=== PATIENT | male | born 1990 | race Two or more races ===

== ENCOUNTER 2017-01-26 15:15 | Emergency (ER) | payer OTHER ==
[~2017-01-26] VITALS: Ht 172.7 cm; Wt 67.6 kg
[2017-01-26 15:16] VITALS: BP 126/75; Ht 172.7 cm; Wt 67.6 kg
== END 2017-01-26 15:51 | disposition other institution (70) ==
LOC: ED 15:15
DX: Z02.89 Encounter for other administrative examinations (principal)

== ENCOUNTER 2018-04-17 14:11 | Emergency (ER) | payer OTHER ==
[~2018-04-17] VITALS: Ht 172.7 cm; Wt 59.9 kg
[2018-04-17 14:19] VITALS: Ht 172.7 cm; Wt 59.9 kg
[2018-04-17 14:58] VITALS: BP 140/83
== END 2018-04-17 14:58 | disposition other institution (70) ==
LOC: ED 14:11
DX: Z02.89 Encounter for other administrative examinations (principal)

== ENCOUNTER 2018-11-14 15:57 | Emergency (ER) | payer OTHER ==
[~2018-11-14] VITALS: Ht 172.7 cm; Wt 67.1 kg
[2018-11-14 16:30] VITALS: BP 107/59; Ht 172.7 cm; Wt 67.1 kg
== END 2018-11-14 16:39 | disposition other institution (70) ==
LOC: ED 15:57
DX: Z02.89 Encounter for other administrative examinations (principal)